=== PATIENT | female | born 2000 | race Caucasian/White ===

== ENCOUNTER → 2020-11-24 | Outpatient (CLI) | payer OTHER ==
--- NOTE | 2020-11-24 16:46 | XR ---
EXAMINATION TYPE: XR humerus RT DATE OF EXAM: 11/24/2020 COMPARISON: NONE HISTORY: Shoulder pain TECHNIQUE: 2 views FINDINGS: Glenohumeral joint is intact. Elbow joint is intact. I see no fracture nor dislocation. IMPRESSION: Negative right humerus exam.
--- NOTE | 2020-11-24 16:47 | XR ---
EXAMINATION TYPE: XR shoulder complete RT DATE OF EXAM: 11/24/2020 COMPARISON: NONE HISTORY: Pain TECHNIQUE: 3 views FINDINGS: I see no fracture nor dislocation. Glenohumeral joint is intact. There are no pathologic ca lcifications. IMPRESSION: Negative right shoulder exam.
--- NOTE | 2020-11-24 16:50 | XR ---
EXAMINATION TYPE: XR wrist complete RT DATE OF EXAM: 11/24/2020 COMPARISON: NONE HISTORY: Shoulder pain wrist pain TECHNIQUE: 4 view FINDINGS: Carpal bones are intact. I see no fracture nor dislocation. Joint spaces are normal. IMPRESSION: Negative right wrist exam. No fracture.
== END | disposition home or self-care (01) ==
LOC: RADXRMAIN 16:11
PROVIDERS: ATTEND Emergency Medicine
DX: M25.511 Pain in right shoulder (principal); M25.531 Pain in right wrist